=== PATIENT | male | born 1990 | race Two or more races ===

== ENCOUNTER 2018-06-01 01:06 | Emergency (ER) | payer SELFPAY ==
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
[2018-06-01] MEDS ORDERED: KETOROLAC 30 MG/1 ML SDV IVP ONE (01:38)
[2018-06-01] MEDS ORDERED: NS 1,000 ML IV ONE (01:38)
[2018-06-01] MEDS ORDERED: METOCLOPRAMIDE 10 MG/2 ML VIAL IVP ONE (01:38)
[2018-06-01] MEDS ORDERED: DEXAMETHASONE 10 MG/ML VIAL IVP ONE (01:38)
[2018-06-01 02:20] LABS: PLATELET COUNT 337 10^3/uL (150-400)
[2018-06-01 03:47] VITALS: BP 112/74
== END 2018-06-01 03:46 | disposition home or self-care (01) ==
DX: R51 Headache (principal)
CPT/HCPCS: 96374; J1100; J1200; J1885; J2765